=== PATIENT | female | born 1955 | race Caucasian/White ===

== ENCOUNTER 2024-11-03 08:39 | Outpatient (AMB) | payer MEDICARE, MEDICAID, SELFPAY ==
[2024-11-03 09:22] VITALS: BP 136/81; PULSE 70; RESP 19; TEMP 36.7; O2SAT 96; BMI 41.0
--- NOTE | 2024-11-03 09:22 | ORTHONT_ITS ---
Vital signs 11/03/24 09:22 Height 1.57 m Height Method Stated Weight 101.718 kg Weight Measurement Method Standing Scale BMI 41.0 BP 136/81 H Blood Pressure Source Automatic Cuff Blood Pressure Location Right Upper Arm Position Sitting Respiration 19 Pulse 70 Pulse Source Monitor Temp 98.1 F Temp Source Temporal Artery Scan Pulse Oximetry (%) 96 Oxygen Delivery Method Room Air Med/Allergies Allergies & Medications Allergies procaine Allergy (Severe, Verified 11/03/24 09:23) Swelling of Lip/Tongue/Throat Medication Reconciliation levothyroxine 75 mcg tablet 75 mcg PO QDAY 05/08/20 [History Confirmed 11/03/24] atorvastatin 10 mg tablet 10 mg PO QDAY 11/03/24 [History Confirmed 11/03/24] famotidine 10 mg tablet 10 mg PO QDAY 11/03/24 [History Confirmed 11/03/24] lisinopril 20 mg-hydrochlorothiazide 12.5 mg tablet 1 tab PO QDAY 11/03/24 [History Confirmed 11/03/24] Exam Exam Patient is in no acute distress and is cooperative with the examination today. Breathing is nonlabored. In no respiratory distress. Bilateral extremities were evaluated and demonstrates sensation intact to light touch. Palpable pedal pulses are present. No significant edema is present. Bilateral hips were examined. The patient has no pain with log roll of the hips. Internal rotation to 30 degrees and external rotation to 30 degrees is painless. Negative FADIR. The left knee was examined. The left knee is in [varus] alignment. Range of motion from [0-115] degrees. Knee is stable to varus and valgus as well as AP translation with <5mm. Patient has a [negative] McMurrays. There is [no] pain with patellofemoral compression and [no] crepitus noted. The knee is [tender] to palpation [medially]. The right knee was also examined. The right knee is in [varus] alignment. Range of motion from [0-120] degrees. Knee is stable to varus and valgus as well as AP translation with <5mm. Patient has a [negative] McMurrays. There is [no] pain with patellofemoral compression and [no] crepitus noted. The knee is [tender] to palpation [medially]. Assessment and Plan Problem List (1) Degenerative arthritis of knee, bilateral: Status: Acute Plan: Patient is a 69-year-old female with bilateral knee pain and bilateral knee arthritis. We discussed nonoperative and operative options. I would like to get weightbearing x-rays and I suspect she has significant arthritis. We will s ee her back after her x-rays are done Advanced Care Planning Discussion Advance care planning discussed with:: patient Office Procedures GNS Level of Care Nursing/Assessment Patient Status: Established Patient Nursing Assessment/Reassesment: Medication Reconciliation, Update PMH in EMR and Vital Signs Coordination of Care: Complex Care and Chronic Disease 1-5, Education Complex Pt/Fam, Consent,records obtained, informed consent, Results/Orders obtained and Staff clarify orders Special Needs: Language special needs Established Patient Charge Established Patient Point Assignment: 95 Established Patient Point Charge: Level 3 (80-115) MA Intake Visit Data Collection New Patient or Established: Established Patient (seen at [facility] within 3 years) Reason for Visit:: RIGHT KNEE PAIN Seen by Clinical Staff ONLY (RN/MA): No Verbal consent obtained for Telemed visit?: No 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 PCP or OBGYN visit in last 3 months: Yes Hx Now: No Do You Feel Safe at Home: Yes Authorities Contacted: N/A Questionairres Past Medical History Past Medical History Have you ever been diagnosed with any of the following: Cardiology Problems Congestive Heart Failure: No Hypertension: Yes Respiratory Problems Chronic Obstructive Pulmonary Disease (COPD): No Genital/Urinary Problems Renal Disease: No Endocrine Problems Diabetes Mellitus Type 1: No Diabetes Mellitus Type 2: No Hypothyroidism: Yes Surgical History Hysterectomy: Yes Subjective Visit Visit for: new patient and knee Immunization / Flu Flu Vaccine in the Last 12 Months: No Flu Vaccine Exclusion Criteria: No Exclusion Criteria History of Present Illness Chief complaint: RIGHT KNEE PAIN Patient is a Pleasant 69-year-old female with right greater than left knee pain. This been ongoing for quite a while. This is been ongoing for several years and she had a prior arthroscopic meniscal surgery over 10 years ago. She has had 1 injection with cortisone and did not tolerate this well she had palpitations. She is also tried ibuprofen. She just started physical therapy and reports that it has been helping Pain Pain level (0-10): 8 Pain duration: CONSTANT Pain location: anterior and posterior Pain quality: sharp, dull and aching Pain timing: increases with activity Associated signs & symptoms: numbness and weakness Ambulatory data Ambulatory device: none Treatments Improvement with previous injections: No Improvement with PT: No Improvement with NSAIDS: n/a Review of Systems Review of Systems: All systems negative unless otherwise noted in HPI.
== END 2024-11-03 09:42 | disposition home or self-care (01) ==
PROVIDERS: PCP Physician Assistant; Referring Provider Physician Assistant; Supervising Provider Orthopaedic Surgery Adult Reconstructive Orthopaedic Surgery; Visit Provider Orthopaedic Surgery Adult Reconstructive Orthopaedic Surgery
DX: M17.0 Bilateral primary osteoarthritis of knee (principal); M25.562 Pain in left knee; M25.561 Pain in right knee; I10 Essential (primary) hypertension; E03.9 Hypothyroidism, unspecified
CPT/HCPCS: 99213; G0463

== ENCOUNTER → 2024-11-03 | Outpatient (CLI) | payer MEDICARE, MEDICAID, SELFPAY ==
--- NOTE | 2024-11-03 | XR_ITS ---
Examination: Bilateral knees 2 views Right lateral knee left lateral knee 2 views Bilateral axial knees single view Technique: Bilateral AP knees standing single view, bilateral PA knees standing single view 30 degrees flexion Standing right lateral knee left lateral knee 2 views Bilateral axial knees single view total 5 views Exam date and time: November 03, 2024 1046 hrs. 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
== END | disposition home or self-care (01) ==
PROVIDERS: PCP Family Medicine; Referring Provider Orthopaedic Surgery Adult Reconstructive Orthopaedic Surgery; Visit Provider Orthopaedic Surgery Adult Reconstructive Orthopaedic Surgery
DX: M17.0 Bilateral primary osteoarthritis of knee (principal); M25.862 Other specified joint disorders, left knee; M25.861 Other specified joint disorders, right knee
CPT/HCPCS: 73564

== ENCOUNTER 2024-11-17 10:18 | Outpatient (AMB) | payer OTHER, SELFPAY ==
[2024-11-17 10:27] VITALS: BP 127/84; PULSE 68; RESP 18; TEMP 36.5; O2SAT 96; BMI 41.8
--- NOTE | 2024-11-17 10:27 | ORTHONT_ITS ---
Vital signs 11/17/24 10:27 Height 1.57 m Height Method Stated Weight 103.221 kg Weight Measurement Method Standing Scale BMI 41.8 BP 127/84 Blood Pressure Source Automatic Cuff Blood Pressure Location Left Upper Arm Position Sitting Respiration 18 Pulse 68 Pulse Source Monitor Temp 97.7 F Temp Source Temporal Artery Scan Pulse Oximetry (%) 96 Oxygen Delivery Method Room Air Med/Allergies Allergies & Medications Allergies procaine Allergy (Severe, Verified 11/17/24 10:28) Swelling of Lip/Tongue/Throat Medication Reconciliation levothyroxine 75 mcg tablet 75 mcg PO QDAY 05/08/20 [History Confirmed 11/17/24] atorvastatin 10 mg tablet 10 mg PO QDAY 11/03/24 [History Confirmed 11/17/24] famotidine 10 mg tablet 10 mg PO QDAY 11/03/24 [History Confirmed 11/17/24] lisinopril 20 mg-hydrochlorothiazide 12.5 mg tablet 1 tab PO QDAY 11/03/24 [History Confirmed 11/17/24] meloxicam 7.5 mg tablet 7.5 mg PO QDAY #45 tabs 11/17/24 [Rx] Exam Exam Patient is in no acute distress and is cooperative with the examination today. Breathing is nonlabored. In no respiratory distress. Bilateral extremities were evaluated and demonstrates sensation intact to light touch. Palpable pedal pulses are present. No significant edema is present. Bilateral hips were examined. The patient has no pain with log roll of the hips. Internal rotation to 30 degrees and external rotation to 30 degrees is painless. Negative FADIR. The left knee was examined. The left knee is in [varus] alignment. Range of motion from [0-115] degrees. Knee is stable to varus and valgus as well as AP translation with <5mm. Patient has a [negative] McMurrays. There is [no] pain with patellofemoral compression and [no] crepitus noted. The knee is [tender] to palpation [medially]. The right knee was also examined. The right knee is in [varus] alignment. Range of motion from [0-120] degrees. Knee is stable to varus and valgus as well as AP translation with <5mm. Patient has a [negative] McMurrays. There is [no] pain with patellofemoral compression and [no] crepitus noted. The knee is [tender] to palpation [medially]. bilateral knee films demonstrate complete joint space narrowing medial and osteophytes Assessment and Plan Problem List (1) Degenerative arthritis of knee, bilateral: Status: Acute Plan: Patient is a 69-year-old female with bilateral knee pain and bilateral knee arthritis. We discussed nonoperative and operative options. She would like to avoid surgery right now. We discussed NSAIDs and PT. She would like to avoid surgery for now. Advanced Care Planning Discussion Advance care planning discussed with:: patient Office Procedures GNS Level of Care Nursing/Assessment Patient Status: Established Patient Nursing Assessment/Reassesment: Medication Reconciliation, Update PMH in EMR and Vital Signs Coordination of Care: Complex Care and Chronic Disease 1-5, Education Complex Pt/Fam, Consent,records obtained, informed consent, Results/Orders obtained and Staff clarify orders Established Patient Charge Established Patient Point Assignment: 95 Established Patient Point Charge: Level 3 (80-115) MA Intake Visit Data Collection New Patient or Established: Established Patient (seen at [facility] within 3 years) Reason for Visit:: XRAY FOLLOW UP Seen by Clinical Staff ONLY (RN/MA): No 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 PCP or OBGYN visit in last 3 months: Yes Hx Now: No Do You Feel Safe at Home: Yes Authorities Contacted: N/A Questionairres Past Medical History Past Medical History Have you ever been diagnosed with any of the following: Cardiology Problems Congestive Heart Failure: No Hypertension: Yes Respiratory Problems Chronic Obstructive Pulmonary Disease (COPD): No Genital/Urinary Problems Renal Disease: No Endocrine Problems Diabetes Mellitus Type 1: No Diabetes Mellitus Type 2: No Hypothyroidism: Yes Surgical History Hysterectomy: Yes Subjective Visit Visit for: follow up visit and x-rays Immunization / Flu Flu Vaccine in the Last 12 Months: No Flu Vaccine Exclusion Criteria: No Exclusion Criteria History of Present Illness Chief complaint: RIGHT KNEE PAIN Patient is a Pleasant 69-year-old female with right greater than left knee pain. This been ongoing for quite a while. This is been ongoing for several years and she had a prior arthroscopic meniscal surgery over 10 years ago. She has had 1 injection with cortisone and did not tolerate this well she had palpitations. She is also tried ibuprofen. She just started physical therapy and reports that it has been helping Pain Pain level (0-10): 5 Pain duration: WITH MOVEMENT Pain location: inside (medial), outside (lateral), anterior and posterior Pain quality: sharp and dull Pain timing: increases with activity Associated signs & symptoms: none Ambulatory data Ambulatory device: none Treatments Improvement with previous injections: No Improvement with PT: No Improvement with NSAIDS: no Review of Systems Review of Systems: All systems negative unless otherwise noted in HPI.
== END 2024-11-17 10:46 | disposition home or self-care (01) ==
LOC: HODSRG 10:18
PROVIDERS: PCP Physician Assistant; Referring Provider Physician Assistant; Supervising Provider Orthopaedic Surgery Adult Reconstructive Orthopaedic Surgery; Visit Provider Orthopaedic Surgery Adult Reconstructive Orthopaedic Surgery
DX: M17.0 Bilateral primary osteoarthritis of knee (principal); M25.562 Pain in left knee; M25.561 Pain in right knee; I10 Essential (primary) hypertension; E03.9 Hypothyroidism, unspecified
CPT/HCPCS: 99213; G0463

== ENCOUNTER → 2025-01-28 | Outpatient (CLI) | payer OTHER, MEDICAID, SELFPAY ==
--- NOTE | 2025-01-28 10:27 | XR_ITS ---
Examination: Cervical spine 3 views Technique one AP, lateral, swimmer's lateral, AP odontoid cervical spine 4 views Exam date and time: January 28, 2025 10:46 AM INDICATIONS: Patient fell 5 years ago with injury of the neck, neck pain FINDINGS: Satisfactory alignment cervical vertebral bodies No cervical fracture Intact odontoid Advanced degenerative disc disease C6-C7 IMPRESSION: Advanced degenerative disc disease C6-C7
== END | disposition home or self-care (01) ==
LOC: CDIM 10:15
PROVIDERS: PCP Nurse Practitioner Family; Referring Provider Nurse Practitioner Family; Visit Provider Nurse Practitioner Family
DX: M50.323 Other cervical disc degeneration at C6-C7 level (principal)
CPT/HCPCS: 72040

== ENCOUNTER 2025-02-16 08:43 | Outpatient (AMB) | payer MEDICARE, MEDICAID, SELFPAY ==
[2025-02-16 08:58] VITALS: BP 105/70; PULSE 85; RESP 17; TEMP 36.9; O2SAT 97; BMI 41.4
--- NOTE | 2025-02-16 08:58 | ORTHONT_ITS ---
Vital signs 02/16/25 08:58 Height 1.57 m Height Method Stated Weight 102.172 kg Weight Measurement Method Standing Scale BMI 41.4 BP 105/70 Blood Pressure Source Automatic Cuff Blood Pressure Location Right Upper Arm Position Sitting Respiration 17 Pulse 85 Pulse Source Monitor Temp 98.4 F Temp Source Temporal Artery Scan Pulse Oximetry (%) 97 Oxygen Delivery Method Room Air Med/Allergies Allergies & Medications Allergies procaine Allergy (Severe, Verified 02/16/25 08:59) Swelling of Lip/Tongue/Throat Medication Reconciliation levothyroxine 75 mcg tablet 75 mcg PO QDAY 05/08/20 [History Confirmed 02/16/25] atorvastatin 10 mg tablet 10 mg PO QDAY 11/03/24 [History Confirmed 02/16/25] famotidine 10 mg tablet 10 mg PO QDAY 11/03/24 [History Confirmed 02/16/25] lisinopril 20 mg-hydrochlorothiazide 12.5 mg tablet 1 tab PO QDAY 11/03/24 [History Confirmed 02/16/25] meloxicam 7.5 mg tablet 7.5 mg PO QDAY #45 tabs 11/17/24 [Rx Confirmed 02/16/25] Exam Exam Patient is in no acute distress and is cooperative with the examination today. Breathing is nonlabored. In no respiratory distress. Bilateral extremities were evaluated and demonstrates sensation intact to light touch. Palpable pedal pulses are present. No significant edema is present. Bilateral hips were examined. The patient has no pain with log roll of the hips. Internal rotation to 30 degrees and external rotation to 30 degrees is painless. Negative FADIR. The left knee was examined. The left knee is in [varus] alignment. Range of motion from [0-115] degrees. Knee is stable to varus and valgus as well as AP translation with <5mm. Patient has a [negative] McMurrays. There is [no] pain with patellofemoral compression and [no] crepitus noted. The knee is [tender] to palpation [medially]. The right knee was also examined. The right knee is in [varus] alignment. Range of motion from [0-120] degrees. Knee is stable to varus and valgus as well as AP translation with <5mm. Patient has a [negative] McMurrays. There is [no] pain with patellofemoral compression and [no] crepitus noted. The knee is [tender] to palpation [medially]. bilateral knee films demonstrate complete joint space narrowing medial and osteophytes Assessment and Plan Problem List (1) Degenerative arthritis of knee, bilateral: Status: Acute Plan: Patient is a 69-year-old female with bilateral knee pain and bilateral knee arthritis. We discussed nonoperative and operative options. We discussed NSAIDs and PT. She would like to try weight loss and wants surgery after she loses some weight. We discussed that this is reasonable Advanced Care Planning Discussion Advance care planning discussed with:: patient Office Procedures GNS Level of Care Nursing/Assessment Patient Status: Established Patient Nursing Assessment/Reassesment: Medication Reconciliation and Update PMH in EMR Coordination of Care: Complex Care and Chronic Disease 1-5, Consent,records obtained, informed consent, Education Simp Pt/Fam, Results/Orders obtained and Staff clarify orders Special Needs: Language special needs ([place] ) Established Patient Charge Established Patient Point Assignment: 75 Established Patient Point Charge: EP Level 2 (40-75) MA Intake Visit Data Collection New Patient or Established: Established Patient (seen at [facility] within 3 years) Reason for Visit:: FU RIGHT KNEE Seen by Clinical Staff ONLY (RN/MA): No Security Sme Required: Yes PCP or OBGYN visit in last 3 months: Yes Hx Now: No Do You Feel Safe at Home: Yes Authorities Contacted: N/A Questionairres Past Medical History Past Medical History Have you ever been diagnosed with any of the following: Cardiology Problems Congestive Heart Failure: No Hypertension: Yes Respiratory Problems Chronic Obstructive Pulmonary Disease (COPD): No Smoking: No Smoking Cessation Counseling: No Smoking Exposure: No Tobacco Use: No Genital/Urinary Problems Renal Disease: No Endocrine Problems Diabetes Mellitus Type 1: No Diabetes Mellitus Type 2: No Hypothyroidism: Yes Surgical History Hysterectomy: Yes Subjective Visit Visit for: follow up visit and knee (RIGHT KNEE ) Immunization / Flu Flu Vaccine in the Last 12 Months: No Flu Vaccine Exclusion Criteria: Refused by Patient History of Present Illness Chief complaint: RIGHT KNEE PAIN Patient is a Pleasant 69-year-old female with right greater than left knee pain. This been ongoing for quite a while. This is been ongoing for several years and she had a prior arthroscopic meniscal surgery over 10 years ago. She has had 1 injection with cortisone and did not tolerate this well she had palpitations. She has also tried ibuprofen. She just started physical therapy and reports that it has been helping. She is now interested in surgery Personal History Red flag PMH: none Pain Pain level (0-10): 0 Pain duration: WITH MOVEMENT Pain location: inside (medial), outside (lateral), anterior and posterior Pain quality: sharp and dull Pain timing: increases with activity Associated signs & symptoms: none Ambulatory data Ambulatory device: none Treatments Number of previous injections: 1 Improvement with previous injections: No Number of Physical Therapy sessions: 8 Improvement with PT: Yes Improvement with NSAIDS: n/a Review of Systems Review of Systems: All systems negative unless otherwise noted in HPI.
== END 2025-02-16 09:38 | disposition home or self-care (01) ==
LOC: HODSRG 08:43
PROVIDERS: PCP Family Medicine; Referring Provider Family Medicine; Supervising Provider Orthopaedic Surgery Adult Reconstructive Orthopaedic Surgery; Visit Provider Orthopaedic Surgery Adult Reconstructive Orthopaedic Surgery
DX: M17.0 Bilateral primary osteoarthritis of knee (principal); M25.562 Pain in left knee; M25.561 Pain in right knee; I10 Essential (primary) hypertension
CPT/HCPCS: 99212; G0463

== ENCOUNTER → 2025-03-15 | Outpatient (CLI) | payer OTHER, MEDICAID, SELFPAY ==
--- NOTE | 2025-03-15 13:45 | XR_ITS ---
Examination: MRI brain without intravenous contrast. Date and time of exam: March 15, 2025 1539 hours Comparison May 09, 2020 INDICATIONS: Post concussion syndrome with dizziness headaches Technique: Multiple axial and sagittal images of the brain obtained. Siemens high-resolution 1.5 Marie short bore scanners utilized. Sagittal sections, T1-weighted, TR 500, TE 14, are performed. Axial sections proton-density and T2-weighted have been obtained. Inversion recovery axial images, TR 9, 260, TE 111, TI 2500. Diffusion weighted images, axial sections, TR 4800, TE 128, B value 1000 Axial sections, ADC map, TR 4800, TE 128 Findings: Enlargement of the sella turcica is not present. The optic chiasm and infundibular are not remarkable. Prepontine and interpeduncular cisterns are not enlarged. There is no localized enlargement of the medulla or priscilla. Fourth ventricle and cerebellar tonsils appear normal in position. No subacute area of hemorrhage density is seen. Mass in the cerebellopontine angle region is not evident. Globes symmetrical. Orbital musculature including medial lateral rectus muscles do not exhibit abnormality. Diffusion-weighted images demonstrate no focus of restricted diffusion. Increased white matter signal moderate Mass effect upon the ventricular system is not identified. Impression: Negative for acute hemorrhage mass effect or midline shift No acute infarct Moderate chronic microvascular white matter change
== END | disposition home or self-care (01) ==
PROVIDERS: PCP Nurse Practitioner Family; Referring Provider Nurse Practitioner Family; Visit Provider Nurse Practitioner Family
DX: R90.82 White matter disease, unspecified (principal)
CPT/HCPCS: 70551

== ENCOUNTER 2025-08-09 09:02 | Outpatient (RCR) | payer OTHER, MEDICAID, SELFPAY ==
--- NOTE | 2025-08-09 10:50 | PTNOTE_ITS ---
PT OP Initial Eval Patient Information Outpatient Physical Therapy Treatment Date: 08/09/25 Visit Reasons: Cervical region Medical Diagnosis: M50.30 Treatment Dx #1: neck pain Start of Care: 08/09/25 Date of Onset: 10 yrs ago Smoking Status Smoking Status: Never smoker Initial Assessment Subjective: Pt is 70 yr old [place]zamb[place] speaking female who c/o long Hx of neck pain and tightness along the base of neck and shoulders. Increased pain with HH chores and sitting and sleeping. PMH: HTN, hypothyroidism Imaging: notes say advanced DDD C6-7 Pt goal: less neck pain Objective: C/S AROM: ? Ext 75% with pain at end-range ? Flexion: full with slight onset of ssx ? L rotation: 80% ? R rotation: 80% ? B SB: 25 deg ? TTP: moderate of lower C/S paraspinals around C4-7 and UT?s ? B shoulder AROM: full FF Assessment: Pt presents with tight B Upper traps and fwd head posture consistent with referral Dx of lower C/S DDD. Pt requires skilled therapy and has fair rehab potential to meet goals. Short Term and Shelter Goals 1. Ind with HEP ? 2. Improved sitting posture to neutral spine posture x5' ? 3. Decreased TTP of B UT's and lower C/S from mod to min ? 4. Pt will turn head L to R x5 with <=4/10 pain Treatment Plan ? 1. Manual therapy ? 2. Therex ? 3. Modalities as indicated, moist heat, ice, estim, mechanical traction Frequency and Duration: 1-2x a week for 6 visits plus the evaluation Certification Dates: 08/09/25 to 11/07/25 Procedure Charges OP PT Eval Mod Complex 30 minutes: Yes
== END 2025-09-03 23:59 | disposition home or self-care (01) ==
LOC: CPTX 09:02
PROVIDERS: PCP Nurse Practitioner Family; Referring Provider Nurse Practitioner Family; Visit Provider Nurse Practitioner Family
DX: M50.323 Other cervical disc degeneration at C6-C7 level (principal)
CPT/HCPCS: 97162